=== PATIENT | female | born 1985 | race Caucasian/White ===

== ENCOUNTER → 2020-03-15 14:46 | Outpatient (CLI) | payer OTHER, SELFPAY ==
--- NOTE | ~2020-03-15 | US_ITS ---
US retroperitoneal comp 03/15/2020 15:16 Procedure: Realtime transabdominal ultrasound of the kidneys and bladder. Indication: Adult polycystic kidney disease. Comparison: Ultrasound dated 06/02/2017 Findings: There are multiple cysts in both kidneys, consistent with known polycystic kidney disease. Largest in the right kidney measures 2.4 cm maximum dimension superiorly. Largest in the left kidney located superiorly measures 1.9 cm. No solid masses, hydronephrosis or stones are identified. Right k idney measures 12.3 cm. Left kidney measures 12.4 cm. Bladder is unremarkable. Impression: 1: Bilateral renal cysts. Otherwise, unremarkable renal ultrasound. Reviewed, dictated and finalized at location A. Impression: 1: Bilateral renal cysts. Otherwise, unremarkable renal ultrasound.
== END ==
DX: Q61.2 Polycystic kidney, adult type (principal)
CPT/HCPCS: 76770

== ENCOUNTER 2022-03-31 14:35 | Outpatient (CLI) | payer OTHER, SELFPAY ==
--- NOTE | ~2022-03-31 | US_ITS ---
EXAMINATION: US renal BI DATE: 03/31/2022 15:16 INDICATION: Renal cyst. TECHNIQUE: Multiple ultrasound grayscale images of the kidneys were obtained. COMPARISON: Ultrasound 03/15/2020 FINDINGS: The right kidney measures 11.0 x 6.5 x 6.9 cm. The left kidney measures 12.1 x 6.4 x 7.9 cm. The kidn eys demonstrate normal parenchymal echogenicity. There are cysts in the kidneys measuring up to 2.8 c m on the right. There is no hydronephrosis. The bladder is normal. IMPRESSION: 1. Benign cysts in the kidneys. Reviewed, dictated and finalized at location A.
== END 2022-03-31 14:36 | disposition home or self-care (01) ==
PROVIDERS: PCP Family Medicine
DX: N28.1 Cyst of kidney, acquired (principal)
CPT/HCPCS: 76775